=== PATIENT | male | born 1970 | race Caucasian/White ===

== ENCOUNTER 2016-07-20 09:38 | Emergency (ER) | payer SELFPAY ==
[~2016-07-20] VITALS: Ht 165.1 cm; Wt 72.0 kg
[2016-07-20 09:43] VITALS: BP 98/51; PULSE 99; RESP 18; TEMP 98.4; O2SAT 100
[2016-07-20] MEDS ORDERED: SODIUM CHLOR 0.9% 1000 ML INJ 1,000 ML IV ONE (10:00)
[2016-07-20] MEDS ORDERED: LORazepam 2 MG/ML VIAL IM ONE (10:00)
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
[2016-07-20] MEDS ORDERED: LORazepam 2 MG/ML VIAL IV PUSH ONE (11:00)
[2016-07-20 11:02] LABS: AUTOMATED NEUTROPHIL # 8.8 TH/MM3 (1.8-7.7); BASOPHIL # 0.1 TH/MM3 (0-0.2); BASOPHIL % 0.5 % (0.0-2.0); EOSINOPHIL # 0.1 TH/MM3 (0-0.4); EOSINOPHIL % 0.7 % (0.0-4.0); HEMO FLAGS DIFF FINAL; LYMPH % 8.5 % (9.0-44.0); LYMPHOCYTE # 0.9 TH/MM3 (1.0-4.8); MEAN CELL VOLUME 89.7 FL (80.0-100.0); MEAN CORPUSCULAR HEMOGLOBIN 31.2 PG (27.0-34.0); MEAN CORPUSCULAR HGB CONC 34.7 % (32.0-36.0); MONO % 3.1 % (0.0-8.0); NEUT % 87.2 % (16.0-70.0); PLATELET COUNT 242 TH/MM3 (150-450); RED BLOOD COUNT 4.46 MIL/MM3 (4.50-5.90); RED CELL DISTRIBUTION WIDTH 13.6 % (11.6-17.2); WHITE BLOOD COUNT 10.1 TH/MM3 (4.0-11.0)
[2016-07-20 11:26] LABS: ANION GAP 10 MEQ/L (5-15); BICARBONATE 17.7 MEQ/L (21.0-32.0); BLOOD UREA NITROGEN 21 MG/DL (7-18); CHLORIDE 109 MEQ/L (98-107); GLOMERULAR FILTRATION RATE 69 ML/MIN (>89); POTASSIUM 4.3 MEQ/L (3.5-5.1); SODIUM (NA) 137 MEQ/L (136-145)
[2016-07-20 11:50] LABS: ALKALINE PHOSPHATASE 63 U/L (45-117); ALT (GPT) 4507 U/L (12-78); AST (GOT) 4263 U/L (15-37); TOTAL BILIRUBIN ADULT 0.9 MG/DL (0.2-1.0)
[2016-07-20 12:18] LABS: BACTERIA, URINE RARE /hpf; BLOOD, URINE SMALL (NEG); GLUCOSE,URINE NEG (NEG); KETONE, URINE 40 mg/dL (NEG); MUCUS URINE FEW /lpf (OCC); NITRITE,URINE NEG (NEG); SQUAMOUS EPITHELIAL CELL URINE 1 /hpf (0-5); URINE COLOR YELLOW (YELLW/STRAW)
[2016-07-20 12:22] LABS: COMMENT (UR) CULT NOT INDICATED; CULTURE IF INDICATED CULT NOT INDICATED
[2016-07-20 12:25] LABS: AMPHETAMINE, URINE POS (NEG); BARBITURATES, URINE NEG (NEG); COCAINE, URINE NEG (NEG)
[2016-07-20 13:24] VITALS: BP 122/71; PULSE 79; RESP 18; O2SAT 98
[2016-07-20 14:30] VITALS: BP 121/70; PULSE 85; RESP 18; O2SAT 99
[2016-07-20 15:30] VITALS: BP 115/70; PULSE 88; RESP 18; O2SAT 99
--- NOTE | 2016-07-20 17:51 | PD ---
Physical Exam Date Seen by Provider: Jul 20, 2016 Time Seen by Provider: 17:49 Narrative Patient was to be evaluated by psych, and medically cleared by Dr. Posey. Patient eloped from the department prior to psychiatric evaluation. Patient is not a [place] act and is therefore free to leave. Data Data Last Documented VS Vital Signs Date Time Temp Pulse Resp B/P Pulse Ox O2 Delivery O2 Flow Rate FiO2 07/20/16 15:30 88 18 115/70 99 07/20/16 09:43 98.4 Orders Complete Blood Count With Diff (07/20/16 09:57) Comprehensive Metabolic Panel (07/20/16 09:57) Urinalysis - C+S If Indicated (07/20/16 09:57) Psych Screen (07/20/16 09:57) Lorazepam Inj (Ativan Inj) (07/20/16 10:00) Restraints Non-Violent DIANA.Q3H (07/20/16 09:57) Drug Screen, Random Urine (07/20/16 09:57) Alcohol (Ethanol) (07/20/16 09:57) Sodium Chlor 0.9% 1000 Ml Inj (Ns 1000 M (07/20/16 10:00) Lorazepam Inj (Ativan Inj) (07/20/16 11:00) Labs Laboratory Tests Test 07/20/16 07/20/16 10:35 11:50 White Blood Count 10.1 TH/MM3 Red Blood Count 4.46 MIL/MM3 Hemoglobin 13.9 GM/DL Hematocrit 40.0 % Mean Corpuscular Volume 89.7 FL Mean Corpuscular Hemoglobin 31.2 PG Mean Corpuscular Hemoglobin 34.7 % Concent Red Cell Distribution Width 13.6 % Platelet Count 242 TH/MM3 Mean Platelet Volume 8.7 FL Neutrophils (%) (Auto) 87.2 % Lymphocytes (%) (Auto) 8.5 % Monocytes (%) (Auto) 3.1 % Eosinophils (%) (Auto) 0.7 % Basophils (%) (Auto) 0.5 % Neutrophils # (Auto) 8.8 TH/MM3 Lymphocytes # (Auto) 0.9 TH/MM3 Monocytes # (Auto) 0.3 TH/MM3 Eosinophils # (Auto) 0.1 TH/MM3 Basophils # (Auto) 0.1 TH/MM3 CBC Comment DIFF FINAL Differential Comment Sodium Level 137 MEQ/L Potassium Level 4.3 MEQ/L Chloride Level 109 MEQ/L Carbon Dioxide Level 17.7 MEQ/L Anion Gap 10 MEQ/L Blood Urea Nitrogen 21 MG/DL Creatinine 1.15 MG/DL Estimat Glomerular Filtration 69 ML/MIN Rate Random Glucose 71 MG/DL Calcium Level 7.8 MG/DL Total Bilirubin 0.9 MG/DL Aspartate Amino Transf 4263 U/L (AST/SGOT) Alanine Aminotransferase 4507 U/L (ALT/SGPT) Alkaline Phosphatase 63 U/L Total Protein 5.8 GM/DL Albumin 3.0 GM/DL Ethyl Alcohol Level LESS THAN 3 MG/DL Urine Color YELLOW Urine Turbidity CLEAR Urine pH 6.0 Urine Specific [place] 1.022 Urine Protein 100 mg/dL Urine Glucose (UA) NEG mg/dL Urine Ketones 40 mg/dL Urine Occult Blood SMALL Urine Nitrite NEG Urine Bilirubin NEG Urine Urobilinogen 2.0 MG/DL Urine Leukocyte Esterase NEG Urine RBC 1 /hpf Urine WBC 2 /hpf Urine Squamous Epithelial 1 /hpf Cells Urine Bacteria RARE /hpf Urine Mucus FEW /lpf Microscopic Urinalysis Comment CULT NOT INDICATED Urine Opiates Screen NEG Urine Barbiturates Screen NEG Urine Amphetamines Screen POS Urine Benzodiazepines Screen POS Urine Cocaine Screen NEG Urine Cannabinoids Screen NEG MDM Medical Record Reviewed: Yes Supervised Visit with GERMAN: Yes Differential Diagnosis EtOH abuse. Mood disorder. Depression. Narrative Course Patient was medically cleared by Dr. Posey for psychiatric evaluation. Patient eloped from the department prior to psychiatric evaluation. Diagnosis Primary Impression: Substance abuse Patient Instructions: General Instructions Departure Forms: Tests/Procedures Disposition: LEFT WITHOUT BEING SEEN Condition: Stable Valdemar Durand Jul 20, 2016 17:51
== END 2016-07-20 17:55 | disposition left against medical advice (07) ==
LOC: NEPA 09:38
DX: F11.20 Opioid dependence, uncomplicated (principal); K59.00 Constipation, unspecified; M79.1 Myalgia; F17.210 Nicotine dependence, cigarettes, uncomplicated; R39.198 Other difficulties with micturition
CPT/HCPCS: 80053; 80307; 80320; 81001; 85025; 96374; 99285; J2060; J7030